=== PATIENT | male | born 1985 | race African-American/Black ===

== ENCOUNTER 2021-06-27 09:49 | Emergency (ER) | payer SELFPAY ==
[~2021-06-27] VITALS: Ht 175.3 cm; Wt 72.6 kg
[2021-06-27 13:00] LABS: HEMOGLOBIN 12.5 gm/dl (14.0-17.5); RED BLOOD COUNT 4.67 M/UL (4.20-5.50)
[2021-06-27 13:31] LABS: WHITE BLOOD COUNT 6.8 K/UL (4.5-11.0)
[2021-06-27 13:58] LABS: BUN/CREATININE RATIO 19 (0-10)
== END 2021-06-27 15:15 | disposition home or self-care (01) ==
LOC: ER1 09:49
PROVIDERS: Nurse Practitioner
DX: D57.219 Sickle-cell/Hb-C disease with crisis, unspecified (principal); F17.200 Nicotine dependence, unspecified, uncomplicated
CPT/HCPCS: 71045; 80053; 82550; 82553; 84484; 85025; 85045; 93005; 96374; 96375; 96376; 99284; J1170; J1200; J1885; J2405